=== PATIENT | female | born 1970 | race Caucasian/White ===

== ENCOUNTER → 2016-10-24 | Outpatient (CLI) | payer OTHER | LOC: US 07:34 | DX: R10.11 Right upper quadrant pain (principal); R14.0 Abdominal distension (gaseous); R12 Heartburn; R14.2 Eructation; R14.1 Gas pain | CPT/HCPCS: 76705 ==

== ENCOUNTER → 2016-11-13 | Outpatient (CLI) | payer OTHER | LOC: NM 10:09 | DX: R10.11 Right upper quadrant pain (principal) | CPT/HCPCS: 78227; A9537; J2805 ==